=== PATIENT | male | born 1985 | race African-American/Black ===

== ENCOUNTER → 2018-08-24 | Outpatient (CLI) | payer MEDICARE ==
[2017-11-05 12:42] VITALS: BP 94/53
[~2018-08-24] MED LIST: ALBU2.5V8 INH; AMLO10TA4 PO; AMOX1TAB61 PO; CARV6.2511 PO; CETI1TAB7 PO; DIGO125T PO; FURO-68 PO; LOSA-73 PO; OMEP20TA63 PO; POTA20TA4 PO
--- NOTE | 2018-08-24 15:52 | CARD ---
MR#: [id number] Date of Study: 08/24/2018 Ordering Physician: PRAVEENA MCMULLEN, Referring Physician: PRAVEENA MCMULLEN, Tech: Sarita Rodríguez APPROVED REPORT EXAM: Two-dimensional and M-mode echocardiogram with Doppler and color Doppler. Other Information Quality : ExcellentHR: 90bpm INDICATION Atrial Fibrillation Non Ischemic Cardiomyopathy RISK FACTORS Hypertension 2D DIMENSIONS RVDd3.6 (2.9-3.5cm)Left Atrium(2D)5.1 (1.6-4.0cm) IVSd1.0 (0.7-1.1cm)Aortic Root(2D)2.9 (2.0-3.7cm) LVDd7.6 (3.9-5.9cm)LVOT Diameter2.2 (1.8-2.4cm) PWd1.1 (0.7-1.1cm)LVDs7.4 (2.5-4.0cm) FS (%) 3.0 %SV20.6 ml LVEF(%)6.7 (>50%) Aortic Valve AoV Peak Mikhail.77.6cm/sAoV VTI9.1cm AO Peak GR.2.4mmHgLVOT Peak Mikhail.62.0cm/s LVOT VTI 8.71cmAO Mean GR.1mmHg CHRISTINE (VMAX)2.57qs7LKJ (VTI)3.56cm2 Pulmonary Valve PV Peak Lswwvgqe03.5cm/sPV Peak Grad.2mmHg Tricuspid Valve TR P. Liubbogd356du/sRAP QGOJYKHS5wkIl TR Peak Gr.48dfIdTCMC82plKm Pulmonary Vein S1 Yofzpcew86.6cm/sD2 Bjjpmgiv92.0cm/s LEFT VENTRICLE The Left Ventricle is severely dilated. There is borderline concentric left ventricular hypertrophy. The left ventricular systolic function is severely impaired. The Ejection Fraction is 10-15%. There i s global hypokinesis of the left ventricle. Diastology indeterminent. RIGHT VENTRICLE The right ventricle is mildly dilated. There is normal right ventricular wall thickness. Systolic fun ction is mildly to moderately reduced. ATRIA The left atrium is moderately dilated. The right atrium size is normal. The interatrial septum is int act with no evidence for an atrial septal defect or patent foramen ovale as noted on 2-D or Doppler i maging. AORTIC VALVE The aortic valve is normal in structure and function. Doppler and Color Flow revealed trace to mild a ortic regurgitation. There is no significant aortic valvular stenosis. MITRAL VALVE The mitral valve is normal in structure and function. There is no evidence of mitral valve prolapse. There is no mitral valve stenosis. Doppler and Color-flow revealed mild mitral regurgitation. TRICUSPID VALVE The tricuspid valve leaflets are thickened , but open well. Doppler and Color Flow revealed mild to m oderate tricuspid regurgitation. There is no tricuspid valve stenosis. PULMONIC VALVE The pulmonic valve is not well visualized. Doppler and Color Flow revealed trace pulmonic valvular re gurgitation. GREAT VESSELS The aortic root is normal in size. The IVC is dilated and collapses >50% with inspiration. PERICARDIAL EFFUSION There is no evidence of significant pericardial effusion. Critical Notification Critical Value: No <Conclusion> The left ventricular systolic function is severely impaired. The Ejection Fraction is 10-15%. The left atrium is moderately dilated. Trace to mild aortic regurgitation. Mild mitral regurgitation. Mild to moderate tricuspid regurgitation. There is no evidence of significant pericardial effusion. Signed by : Constantine Peck, Electronically Approved : 08/24/2018 15:50:02
== END | disposition home or self-care (01) ==
LOC: ECHO 12:57
PROVIDERS: ATTEND Internal Medicine Cardiovascular Disease
DX: I08.1 Rheumatic disorders of both mitral and tricuspid valves (principal); I48.91 Unspecified atrial fibrillation; I42.8 Other cardiomyopathies; I10 Essential (primary) hypertension
CPT/HCPCS: 93306

== ENCOUNTER → 2018-09-29 | Outpatient (CLI) | payer MEDICARE ==
[2017-11-05 12:42] VITALS: BP 94/53
[2018-09-29 15:49] LABS: BASO # 0.1 x10^3/uL (0.0-0.2); BASO % 1 % (0-3); EOS # 0.1 x10^3/uL (0.0-0.7); EOS % 2 % (0-3); HEMATOCRIT 45.3 % (39.0-53.0); LYMPH # 1.6 x10^3/uL (1.0-4.8); LYMPH % 24 % (24-48); MEAN CORPUSCULAR HEMOGLOBIN 29 pg (25-35); MEAN CORPUSCULAR HGB CONC 33 g/dL (31-37); MEAN CORPUSCULAR VOLUME 89 fL (79-100); MONO # 0.4 x10^3/uL (0.0-1.1); MONO % 6 % (0-9); NEUT # 4.5 x10^3uL (1.8-7.7); NEUT % 67 % (31-73); PLATELET COUNT 401 x10^3/uL (140-400); RED BLOOD COUNT 5.12 x10^6/uL (4.30-5.70); WHITE BLOOD COUNT 6.7 x10^3/uL (4.0-11.0)
[2018-09-29 16:04] LABS: CALCIUM 9.5 mg/dL (8.5-10.1); CREATININE 1.3 mg/dL (0.7-1.3); GFR 77.4; MAGNESIUM 1.9 mg/dL (1.8-2.4); POTASSIUM 4.3 mmol/L (3.5-5.1)
== END | disposition home or self-care (01) ==
LOC: LAB 14:49
PROVIDERS: ATTEND Internal Medicine Cardiovascular Disease
DX: I11.0 Hypertensive heart disease with heart failure (principal); I50.9 Heart failure, unspecified; K21.9 Gastro-esophageal reflux disease without esophagitis
CPT/HCPCS: 36415; 80048; 83735; 85025